=== PATIENT | female | born 1945 | race Caucasian/White ===

== ENCOUNTER 2016-04-13 01:27 | Emergency (ER) | payer MEDICARE, BC, OTHER ==
[~2016-04-13] VITALS: Ht 154.9 cm; Wt 74.5 kg
[~2016-04-13 01:27] MED LIST: BENI20TA25 PO
[2016-04-13 01:38] VITALS: BP 141/83; PULSE 70; RESP 24; TEMP 99.1; O2SAT 97
[2016-04-13] MEDS ORDERED: OLME1TAB9 PO (01:53)
[2016-04-13] MEDS ORDERED: MULTTAB67 PO (01:53)
[2016-04-13] MEDS ORDERED: GARC500T PO (01:53)
[2016-04-13 02:00] VITALS: RESP 18; O2SAT 96
[2016-04-13 02:05] VITALS: BP 147/80; PULSE 69; RESP 18; O2SAT 96
--- NOTE | 2016-04-13 02:42 | PD ---
HPI Chief Complaint: Skin Problem Time Seen by Provider: 02:34 Travel History International Travel<30 days: No Contact w/Intl Traveler<30days: No Traveled to known affect area: No History of Present Illness HPI The patient is a 70-year-old female that was working in her yard yesterday morning and at 11 AM she started feeling some itching and some urticarial reaction on her left wrist only. She also has a painful rash on her left wrist. She denies any shortness of breath but the urticarial reaction continually got worse and she came in to emergency department for this. She knows she is allergic to poison wesly and morphine gives her hives. PFSH Past Medical History Arthritis: Yes Cancer: No Cardiovascular Problems: No High Cholesterol: Yes Diminished Hearing: No Endocrine: No Genitourinary: No Hypertension: Yes Immune Disorder: No Musculoskeletal: Yes Neurologic: No Psychiatric: No Reproductive: No Respiratory: No Tetanus Vaccination: Unknown Influenza Vaccination: No : 2 Para: 1 Miscarriage: 1 Social History Alcohol Use: Yes (2-3 TIMES PER WEEK, WINE) Tobacco Use: No Substance Use: No Allergies-Medications (Allergen,Severity, Reaction): Coded Allergies: Morphine (Verified Allergy, Severe, Hives, 06/16/14) Reported Meds & Prescriptions Reported Meds & Active Scripts Active Reported Garcinia Cambogia 500-200 mg-Mcg (Garcinia Cambogia-Chromium) 1 Tab Tab 1 Tab PO DAILY Multiple Vitamin 1 Tab 1 Tab PO DAILY Olmesartan-Hydrochlorothiazide 40-25 Mg Tab 0.5 Tab PO DAILY Review of Systems Except as stated in HPI: all other systems reviewed are Neg Physical Exam Narrative GENERAL: The patient is alert, oriented 3 in slight apparent distress with her urticarial reaction. She is in no respiratory distress. Her vital signs show blood pressure 141/83 but otherwise normal. SKIN: Warm and dry. There is an urticarial reaction on the left hand, left arm and left neck. No lesions are noted on the legs, back or abdomen. HEAD: Atraumatic. Normocephalic. EYES: Pupils equal and round. No scleral icterus. No injection or drainage. ENT: No nasal bleeding or discharge. Mucous membranes pink and moist. NECK: Trachea midline. No JVD. CARDIOVASCULAR: Regular rate and rhythm. No murmur appreciated. RESPIRATORY: No accessory muscle use. Clear to auscultation. Breath sounds equal bilaterally. GASTROINTESTINAL: Abdomen soft, non-tender, nondistended. Hepatic and splenic margins not palpable. MUSCULOSKELETAL: No obvious deformities. No clubbing. No cyanosis. No edema. NEUROLOGICAL: Awake and alert. No obvious cranial nerve deficits. Motor grossly within normal limits. Normal speech. PSYCHIATRIC: Appropriate mood and affect; insight and judgment normal. Data Data Last Documented VS Vital Signs Date Time Temp Pulse Resp B/P Pulse Ox O2 Delivery O2 Flow Rate FiO2 04/13/16 03:10 79 18 119/71 97 Room Air 04/13/16 01:38 99.1 Orders Basic Metabolic Panel (Bmp) (04/13/16 02:34) Complete Blood Count With Diff (04/13/16 02:34) Ecg Monitoring (04/13/16 02:34) Iv Access Insert/Monitor (04/13/16 02:34) Oximetry (04/13/16 02:34) Diphenhydramine Inj (Benadryl Inj) (04/13/16 02:45) Methylprednisolone So Succ Inj (Solumedr (04/13/16 02:45) Famotidine Inj (Pepcid Inj) (04/13/16 02:45) Sodium Chloride 0.9% Flush (Ns Flush) (04/13/16 02:45) Epinephrine (1:1000) Inj (Adrenalin (1:1 (04/13/16 02:45) Labs Laboratory Tests Test 04/13/16 02:10 White Blood Count 10.9 TH/MM3 Red Blood Count 4.41 MIL/MM3 Hemoglobin 13.8 GM/DL Hematocrit 40.4 % Mean Corpuscular Volume 91.6 FL Mean Corpuscular Hemoglobin 31.2 PG Mean Corpuscular Hemoglobin 34.0 % Concent Red Cell Distribution Width 13.6 % Platelet Count 344 TH/MM3 Mean Platelet Volume 9.0 FL Neutrophils (%) (Auto) 46.6 % Lymphocytes (%) (Auto) 42.6 % Monocytes (%) (Auto) 7.7 % Eosinophils (%) (Auto) 2.3 % Basophils (%) (Auto) 0.8 % Neutrophils # (Auto) 5.2 TH/MM3 Lymphocytes # (Auto) 4.6 TH/MM3 Monocytes # (Auto) 0.8 TH/MM3 Eosinophils # (Auto) 0.2 TH/MM3 Basophils # (Auto) 0.1 TH/MM3 CBC Comment DIFF FINAL Differential Comment Sodium Level 139 MEQ/L Potassium Level 3.9 MEQ/L Chloride Level 104 MEQ/L Carbon Dioxide Level 24.8 MEQ/L Anion Gap 10 MEQ/L Blood Urea Nitrogen 21 MG/DL Creatinine 0.79 MG/DL Estimat Glomerular Filtration 72 ML/MIN Rate Random Glucose 102 MG/DL Calcium Level 8.0 MG/DL MDM Medical Decision Making Medical Screen Exam Complete: Yes Emergency Medical Condition: Yes Medical Record Reviewed: Yes Differential Diagnosis Herpes zoster, allergic reaction, allergic urticaria Narrative Course The patient did not get much of a reaction with the epinephrine. Because of the pain on her left wrists and the lack of resolution with epinephrine the patient likely has herpes zoster. Moreover, everything is on the same dermatome on the left neck and left arm. Impression: Herpes zoster Plan: The patient will be given Zovirax and Lortab 5. Diagnosis Primary Impression: Herpes zoster Additional Instructions: Do not drink alcohol or drive on the Lortab 5. You're probably not allergic to Lortab 5 but, since you have an adverse reaction to morphine he will need to drink plenty liquids and be careful about sitting up or standing. If worse, return to emergency department. Med/Other Pt SpecificInfo: Prescription(s) given Scripts Hydrocodone-Acetaminophen (Lortab)7.5-325 Mg Tab1 Tab PO Q6H PRN (PAIN) #30 TAB Ref 0 Prov:Dirk Hunter MD 04/13/16 Acyclovir (Zovirax)800 Mg [id number] Mg PO 5 TIMES A DAY 7 Days Ref 0 Prov:Dirk Hunter MD 04/13/16 Disposition: 01 DISCHARGE HOME Condition: Stable Dirk Hunter MD Apr 13, 2016 02:41
[2016-04-13] MEDS ORDERED: SODIUM CHLORIDE 0.9% FLUSH 5 ML FLUSH IVF PRN (02:45)
[2016-04-13] MEDS ORDERED: methylPREDNISolone SOD SUCC 125 MG/2 ML VIAL IVP ONE (02:45)
[2016-04-13] MEDS ORDERED: EPINEPHrine HCL (1:1000) 1 MG/ML VIAL IM ONE (02:45)
[2016-04-13] MEDS ORDERED: diphenhydrAMINE HCL 50 MG/ML VIAL IVP ONE (02:45)
[2016-04-13] MEDS ORDERED: FAMOTIDINE 20 MG/2 ML VIAL IV PUSH ONE (02:45)
[2016-04-13 03:10] VITALS: BP 119/71; PULSE 79; RESP 18; O2SAT 97
[2016-04-13 03:31] LABS: AUTOMATED NEUTROPHIL # 5.2 TH/MM3 (1.8-7.7); BASOPHIL # 0.1 TH/MM3 (0-0.2); BASOPHIL % 0.8 % (0.0-2.0); EOSINOPHIL # 0.2 TH/MM3 (0-0.4); EOSINOPHIL % 2.3 % (0.0-4.0); HEMATOCRIT 40.4 % (35.0-46.0); HEMO FLAGS DIFF FINAL; LYMPH % 42.6 % (9.0-44.0); LYMPHOCYTE # 4.6 TH/MM3 (1.0-4.8); MEAN CELL VOLUME 91.6 FL (80.0-100.0); MEAN CORPUSCULAR HEMOGLOBIN 31.2 PG (27.0-34.0); MONO % 7.7 % (0.0-8.0); NEUT % 46.6 % (16.0-70.0); PLATELET COUNT 344 TH/MM3 (150-450); RED BLOOD COUNT 4.41 MIL/MM3 (4.00-5.30); RED CELL DISTRIBUTION WIDTH 13.6 % (11.6-17.2); WHITE BLOOD COUNT 10.9 TH/MM3 (4.0-11.0)
[2016-04-13 03:43] LABS: POTASSIUM 3.9 MEQ/L (3.5-5.1)
[2016-04-13 03:46] LABS: BICARBONATE 24.8 MEQ/L (21.0-32.0)
[2016-04-13 04:10] VITALS: BP 119/68; PULSE 70; RESP 18; O2SAT 97
[2016-04-13] MEDS ORDERED: HYDR-3534 PO (04:13)
[2016-04-13] MEDS ORDERED: ACYC-101 PO (04:13)
== END 2016-04-13 04:39 | disposition home or self-care (01) ==
LOC: PHED 01:27
DX: B02.9 Zoster without complications (principal)
CPT/HCPCS: 80048; 85025; 96372; 96374; 96375; 99283; J0171; J1200; J2930